=== PATIENT | female | born 1995 ===

== ENCOUNTER 2022-08-09 07:15 | Inpatient (IN) ==
--- NOTE | 2022-07-29 09:27 | Anesthesiology Consultation ---
Date of Service July 29, 2022 Assessment & Plan (1) Encounter for pre-operative examination: Chart Review Chart Review: medical charge entry specialist initiated -COVID screening: Per PAT nursing assessment on 07/29/22. No known COVID-19 positive contacts or current COVID-19 related symptoms. Travel screen negative. Patient is NOT vaccinated for Covid. At surgeon discretion if preop Covid testing being done. History Surgery Operation Date: 08/09/22 08:50 Proposed Procedures p Repeat Section - Bernardo Costello MD s with Bilateral Tubal Ligation - Bernardo Costello MD Height/Weight Height: 5 ft 9 in Weight: 120.202 kg Allergies Allergy/AdvReac Type Severity Reaction Status Date / Time No Known Allergies Allergy Verified 07/29/22 07:57 Medications Home Medications Medication Instructions Recorded Confirmed Last Taken ascorbic acid (vitamin C) 250 mg 250 mg PO QAM 07/29/22 07/29/22 Unknown tablet (Vitamin C) cyanocobalamin (vitamin B-12) 1,000 mcg PO QAM 07/29/22 07/29/22 Unknown 1,000 mcg tablet ferrous sulfate 140 mg (45 mg 45 mg PO QAM 07/29/22 07/29/22 Unknown iron) tablet,extended release (Slow Release Iron) sertraline 50 mg tablet 50 mg PO QAM 07/29/22 07/29/22 Unknown Past Medical History Medical History (Updated 07/29/22 @ 09:26 by Lucy Green PA-C) Anxiety and depression GERD (gastroesophageal reflux disease) only during Hypothyroidism pcp monitors labs Iron deficiency anemia during Prediabetes "supposed to take metformin but does not" Hgb A1C 5.3 in 05/2022 per records PTSD (post-traumatic stress disorder) Past Surgical History Surgical History Family history of reaction to anesthesia son>confused and combative with tonsillectomy History of section x 1 History of surgery on arm Right [place] teeth removed Social History Smoking Status: Former smoker tobacco type: cigarettes Do You Dip or Chew Tobacco: No Smoking End Date: 2021 Hx Alcohol Use: No substance use type: does not use Testing Laboratory Results 07/15/22= WBC: 8.43 H/H: 11.0/34.2 PLATELETS: 208 CREATININE: 0.7 TSH: 1.65
[2022-08-09] MEDS ORDERED: LACTATED RINGER'S 1,000 ML IV SCH (07:45)
[2022-08-09] MEDS ORDERED: CITRIC ACID/SODIUM CITRATE 15 ML UDC PO SCH (07:45)
[2022-08-09 08:22] LABS: Basophils # (auto) 0.04 K/uL (0-0.2); Basophils % (auto) 0.5 %; Eosinophils # (auto) 0.05 K/uL (0-0.50); Eosinophils % (auto) 0.7 %; Hematocrit (blood only) 34.6 % (37.0-47.0); Hemoglobin 11.4 g/dl (12.0-16.0); Immature Granulocytes # (auto) 0.14 K/uL (0.01-0.20); Immature Granulocytes % (auto) 1.8 %; Lymphocytes % (auto) 24.8 %; Mean Corpuscular Hemoglobin 29.5 pg (25.0-34.0); Mean Corpuscular Hgb Conc 32.9 g/dL (32.0-36.0); Mean Corpuscular Volume 89.6 fL (80.0-100.0); Mean Platelet Volume 8.9 fL (9.4-12.4); Monocytes # (auto) 0.55 K/uL (0.11-0.59); Monocytes % (auto) 7.2 %; Neutrophils # (auto) 4.99 K/uL (1.40-6.50); Platelet Count 193 K/uL (130-400); RDW Coefficient of Variation 14.3 % (11.5-14.5); RDW Standard Deviation 47.2 fL (36.4-46.3); Red Blood Count 3.86 M/uL (4.20-5.40); White Blood Count 7.67 K/ul (4.8-10.8)
[2022-08-09] MEDS ORDERED: SODIUM CHLORIDE 0.9% 250 ML IV PRN (08:34)
[2022-08-09] MEDS ORDERED: MoRPHine SULFATE PF 1 MG/ML 10 ML AMP/VIAL ONE (09:16)
[2022-08-09] MEDS ORDERED: ONDANSETRON INJ 2 MG/ML 2 ML VIAL IV PRN (10:23)
[2022-08-09] MEDS ORDERED: diphenhydrAMINE 50 MG/ML VIAL IV PRN (10:23)
[2022-08-09] MEDS ORDERED: PROMETHAZINE HCL 12.5 MG in SODIUM CHLORIDE 0.9% 50 ML IV PRN (10:23)
[2022-08-09] MEDS ORDERED: ePHEDrine sulfate 50 MG/ML AMP IV PRN (10:23)
[2022-08-09] MEDS ORDERED: MoRPHine SULFATE 2 MG/ML CARP IV PRN (10:23)
[2022-08-09] MEDS ORDERED: NALOXONE HCL 1 MG in SODIUM CHLORIDE 0.9% 1000ML 1,000 ML IV PRN (10:23)
[2022-08-09] MEDS ORDERED: MoRPHine SULFATE PF 1 MG/ML 10 ML AMP/VIAL INT SPINAL ONE (10:23)
[2022-08-09] MEDS ORDERED: NALBUPHINE HCL INJ 10 MG/ML AMP IV PRN (10:23)
[2022-08-09] MEDS ORDERED: LACTATED RINGER'S 500 ML IV PRN (10:23)
[2022-08-09] MEDS ORDERED: NALOXONE HCL 0.08 MG in SYRINGE 1.8 ML IV PRN (10:23)
[2022-08-09] MEDS ORDERED: NALOXONE HCL 0.4 MG/1 ML VIAL/CARP IV PRN (10:23)
[2022-08-09] MEDS ORDERED: DC INTRASPINAL MORPHINE SCH (10:30)
[2022-08-09] MEDS ORDERED: SODIUM CHLORIDE 0.9% 1000ML 1,000 ML IV SCH (10:30)
[2022-08-09] MEDS ORDERED: NO NARCOTICS OR SEDATIVES SCH (10:30)
[2022-08-09] MEDS ORDERED: METOCLOPRAMIDE HCL INJ 5 MG/ML 2 ML VIAL ONE (10:40)
[2022-08-09] MEDS ORDERED: PHENYLEPHRINE 100MCG/ML 5ML SYR ONE (10:40)
[2022-08-09] MEDS ORDERED: ONDANSETRON INJ 2 MG/ML 2 ML VIAL ONE (10:40)
[2022-08-09] MEDS ORDERED: ePHEDrine sulfate 50 MG/ML SYR ONE (10:40)
[2022-08-09] MEDS ORDERED: OXYTOCIN 10 UNITS/ML VIAL ONE (10:40)
[2022-08-09] MEDS ORDERED: METHYLERGONOVINE MALEATE 0.2 MG/ML AMP ONE (11:29)
[2022-08-09] MEDS ORDERED: OXYTOCIN 10 UNITS/ML 10ML VIAL IM ONE (11:39)
[2022-08-09 11:43] LABS: Base Excess Cord Venous Blood -2.6 mEq/L (-7.7-1.9); Cord Venous Blood HCO3 22 mmol/L (18.4-26.8); Cord Venous Blood PCO2 36 mmHg (30.4-57.2); Cord Venous Blood PO2 34 mmHg (14.1-43.3); Cord Venous Blood pH 7.39 (7.20-7.44); O2 Saturation Cord Venous Bld 70.3 % (<68)
[2022-08-09] MEDS ORDERED: BENZOCAINE 20% AER SPR 82.5 GM CAN EXT PRN (12:30)
[2022-08-09] MEDS ORDERED: HYDROCORTISONE ACETATE 25 MG SUPP PR PRN (12:30)
[2022-08-09] MEDS ORDERED: DIPHTHERIA/TETANUS/PERTUSSIS Vaccine (Tdap, Age 7+yrs) 0.5mL SYR/VL IM ONE (12:30)
[2022-08-09] MEDS ORDERED: MAGNESIUM HYDROXIDE SUSP 30 ML UDC PO PRN (12:30)
[2022-08-09] MEDS ORDERED: SENNA 8.6 MG TAB PO PRN (12:30)
[2022-08-09] MEDS: SIMETHICONE 80 MG CHEW PO SCH ×3 (13:42→21:53)
[2022-08-09] MEDS: KETOROLAC 30 MG/ML VIAL IV PRN ×2 (13:47→23:27)
[2022-08-09] MEDS: OXYTOCIN 20 UNITS in LACTATED RINGER'S 1,000 ML IV SCH ×2 (13:59→22:10)
--- NOTE | 2022-08-09 15:34 | Anesthesiology Progress Note ---
Date of Service August 09, 2022 Anesthesia Post Procedure Vital Signs Vital Signs: Temp Pulse Resp BP Pulse Ox 08/09/22 15:13 18 08/09/22 14:10 71 18 100 08/09/22 13:40 36.5 C 20 08/09/22 13:10 18 08/09/22 13:10 18 08/09/22 12:50 18 08/09/22 12:40 20 08/09/22 12:06 36.5 C 18 08/09/22 12:30 18 08/09/22 12:20 18 08/09/22 07:39 36.7 C 20 08/09/22 15:01 68 115/59 L 08/09/22 14:58 75 89 L 08/09/22 14:56 96 H 115/62 08/09/22 14:53 72 100 08/09/22 14:48 100 08/09/22 14:48 71 08/09/22 14:48 68 91 08/09/22 14:46 72 123/67 08/09/22 14:42 72 98 08/09/22 14:40 80 92 08/09/22 14:37 83 100 08/09/22 14:36 72 121/60 08/09/22 14:32 147 H 88 L 08/09/22 14:27 82 83 L 08/09/22 14:26 88 118/64 08/09/22 14:22 92 08/09/22 14:22 71 08/09/22 14:22 78 92 08/09/22 14:17 80 100 08/09/22 14:16 92 08/09/22 14:16 78 08/09/22 14:16 92 H 126/63 08/09/22 14:12 77 100 08/09/22 14:07 78 100 08/09/22 14:06 88 L 08/09/22 14:06 69 08/09/22 14:06 66 116/55 L 08/09/22 14:02 66 99 08/09/22 13:57 70 97 08/09/22 13:56 67 115/63 08/09/22 13:52 68 98 08/09/22 13:53 73 94 08/09/22 13:47 77 100 08/09/22 13:48 69 91 08/09/22 13:46 73 123/67 08/09/22 13:42 131 H 97 08/09/22 13:36 93 08/09/22 13:36 75 08/09/22 13:35 67 100 08/09/22 13:36 64 121/63 08/09/22 13:31 68 92 08/09/22 13:30 72 100 08/09/22 13:26 90 08/09/22 13:26 71 08/09/22 13:25 69 100 08/09/22 13:26 69 121/63 08/09/22 13:20 71 100 08/09/22 13:21 75 123/61 08/09/22 13:15 66 100 08/09/22 13:13 76 90 08/09/22 13:10 66 100 08/09/22 13:05 67 100 08/09/22 13:00 73 100 08/09/22 12:55 70 100 08/09/22 12:56 74 112/62 08/09/22 12:50 72 100 08/09/22 12:45 66 100 08/09/22 12:46 68 110/58 L 08/09/22 12:40 67 100 08/09/22 12:35 74 100 08/09/22 12:36 76 110/57 L 08/09/22 12:30 80 100 08/09/22 12:25 69 100 08/09/22 12:26 65 107/58 L 08/09/22 12:20 71 100 08/09/22 12:15 72 100 08/09/22 12:16 75 111/55 L 08/09/22 12:10 70 100 08/09/22 12:05 77 99 08/09/22 12:06 73 118/55 L 08/09/22 07:29 81 133/72 Pain Intensity Lower Abdomen: Pain Intensity: 2 Transfer of Care Handoff Completed per policy Notes Mental Status: alert / awake / arousable Patient Amnestic to Procedure: Yes Nausea / Vomiting: adequately controlled Pain: adequately controlled Airway Patency, RR, SpO2: stable & adequate BP & HR: stable & adequate Hydration State: stable & adequate Neuraxial Anesthesia: was administered and sensory block is resolving Anesthetic Complications: no major complications apparent
--- NOTE | 2022-08-09 16:20 | Operative Report (OR) ---
DATE OF SURGERY: 08/09/2022. INDICATION FOR SURGERY: This is a 27-year-old G3, P2, at term, prior section, wis hes to have repeat and permanent sterilization. PREOPERATIVE DIAGNOSES: 1. at term. 2. Previous section. 3. Wishes to have permanent sterilization. POSTOPERATIVE DIAGNOSES: 1. at term. 2. Previous section. 3. Wishes to have permanent sterilization. SURGEON: Dameon Morocho MD. ROBOTIC WELD TECHNICIAN: Nilsa Mitchell. ATTESTATION FOR ROBOTIC WELD TECHNICIAN: Public Interviewer was necessary to help with retraction and manipulation of instr uments in order to provide for a safe surgery. ANESTHESIA: General. PROCEDURE: Repeat section with bilateral fallopian tube removal. ESTIMATED BLOOD LOSS: 300 mL URINE OUTPUT: 350 mL clear urine at the end of procedure. INTRAVENOUS FLUIDS: 2900 mL SPECIMENS: Live infant. Weight and Apgars in the pediatric record. Cord gas, cord blood and placen ta. Left and right fallopian tubes. INTRAOPERATIVE COMPLICATIONS: None. PATIENT CONDITION: Stable. DISPOSITION: Postanesthesia care unit. ATTESTATION: I performed the entire procedure. FINDINGS: Abdomen had several adhesions from prior surgery. The omentum was attached to the anterio r abdominal wall. Both fallopian tubes were identified and followed to the fimbriated end, both ovar ies appeared grossly normal. Uterus otherwise appeared normal. DESCRIPTION OF PROCEDURE: The patient was taken to the operating room where she was prepped and drap ed in normal sterile fashion in dorsal lithotomy position. A transverse incision was made above the old scar because the old scar appeared inflamed and erythematous. It was in the crease of the pannus . Incision was carried down through the fascia. Fascia was incised in the midline and extended late rally on both sides. The rectus abdominis was dissected off the fascia. There was an adhesion of om entum attached to the rectus abdominis. Careful dissection was performed to prevent any hole in the fascia. Same procedure was performed on the lower part of the incision. Once the rectus abdominis w as sharply dissected off, it was incised in the midline. Peritoneum was identified and the abdomen e ntered. Once inside the abdomen, the findings as dictated above. The omentum was carefully dissecte d out of points of insertion on the abdominal wall. Uterus was identified, vesicouterine peritoneum was identified. The vesicouterine peritoneum was carefully dissected off the lower segment of the ut erus. A low transverse incision was made on the uterus and extended on both sides using bandage scis sors. Amniotomy was performed. Infant was delivered. There was a body cord around the right leg. This was easily reduced. Cord was clamped and cut and handed over to the waiting pediatric team. In josef's weight and information is in the pediatric record. Cord blood, cord gases were obtained. Toya centa was manually removed. Uterus was exteriorized and cleared of all clots and debris. Uterus was closed in 2 layers using Vicryl stitch. Good hemostasis was obtained. Attention was paid to the tubal ligation part of the procedure where both tubes were identified and f ollowed to the fimbriated end. Both fallopian tubes were transected using electrocautery. There was good hemostasis at the end of transection. Both specimens were sent to pathology for pathological a nalysis. Once good hemostasis was obtained, the uterus was returned to the abdominal cavity. Copiou s amount of irrigation used to irrigate the abdomen. The rectus abdominis muscle was loosely approxi mated using [id number] sutures. This was done to prevent future adhesions witnessed earlier in this patient. The fascia was examined and is in good condition. There were no openings in the fasci a, to prevent a hernia. The fascia was closed in running fashion using PDS suture. Copious amount o f irrigation was used to irrigate the abdomen. The subcutaneous space was reapproximated using plain suture. The skin was closed with phil. All instruments were removed from the abdomen and accounted for x2 including sponges, needles, and re tractors. The patient is sent to recovery in stable condition. Job ID: [id number]
[2022-08-09] MEDS: DOCUSATE SODIUM 100 MG CAP PO SCH (21:52)
[2022-08-10] MEDS ORDERED: diphenhydrAMINE Capsule 25 MG CAP PO PRN (04:54)
[2022-08-10] MEDS ORDERED: diphenhydrAMINE 50 MG/ML VIAL IV PRN (04:54)
[2022-08-10] MEDS ORDERED: ONDANSETRON INJ 2 MG/ML 2 ML VIAL IV PRN (04:54)
[2022-08-10] MEDS ORDERED: PROMETHAZINE HCL 25 MG in SODIUM CHLORIDE 0.9% 50 ML IV PRN (04:54)
[2022-08-10] MEDS: oxyCODONE/ACETAMINOPHEN 5mg/325mg TAB PO PRN ×4 (05:36→23:25)
[2022-08-10] MEDS: IBUPROFEN 600 MG TAB PO PRN ×4 (05:36→23:26)
[2022-08-10] MEDS: LACTATED RINGER'S 1,000 ML IV SCH (05:40)
[2022-08-10 06:45] LABS: Basophils # (auto) 0.02 K/uL (0-0.2); Basophils % (auto) 0.3 %; Eosinophils # (auto) 0.06 K/uL (0-0.50); Eosinophils % (auto) 0.8 %; Hematocrit (blood only) 30.7 % (37.0-47.0); Hemoglobin 10.2 g/dl (12.0-16.0); Immature Granulocytes # (auto) 0.07 K/uL (0.01-0.20); Immature Granulocytes % (auto) 0.9 %; Lymphocytes # (auto) 1.19 K/uL (1.2-3.4); Lymphocytes % (auto) 15.6 %; Mean Corpuscular Hemoglobin 29.7 pg (25.0-34.0); Mean Corpuscular Hgb Conc 33.2 g/dL (32.0-36.0); Mean Corpuscular Volume 89.2 fL (80.0-100.0); Mean Platelet Volume 9.1 fL (9.4-12.4); Monocytes # (auto) 0.71 K/uL (0.11-0.59); Monocytes % (auto) 9.3 %; Neutrophils # (auto) 5.58 K/uL (1.40-6.50); Neutrophils % (auto) 73.1 %; Platelet Count 155 K/uL (130-400); RDW Coefficient of Variation 14.3 % (11.5-14.5); RDW Standard Deviation 46.3 fL (36.4-46.3); Red Blood Count 3.44 M/uL (4.20-5.40); White Blood Count 7.63 K/ul (4.8-10.8)
[2022-08-10] MEDS: PRENATAL VITAMIN 1 TAB PO SCH (08:17)
[2022-08-10] MEDS: SIMETHICONE 80 MG CHEW PO SCH ×4 (08:17→20:27)
[2022-08-10] MEDS: DOCUSATE SODIUM 100 MG CAP PO SCH ×2 (08:17→20:28)
[2022-08-10] MEDS: FERROUS SULFATE 325 MG TAB PO SCH (08:17)
--- NOTE | 2022-08-10 10:48 | Obstetrical Progress Note ---
Date of Service August 10, 2022 Assessment & Plan (1) delivery delivered: POD #1 Pt doing well Continue day #1 care Results & Data Vital Signs (Past 12 Hours) Vital Signs Temp Pulse Resp BP Pulse Ox O2 Del Method 08/10/22 08:05 36.5 C 64 16 118/73 97 Room Air 08/10/22 04:00 18 92 08/10/22 03:10 18 97 08/10/22 03:10 36.8 C 72 18 112/68 97 Room Air 08/10/22 02:00 18 94 08/10/22 01:00 18 93 08/10/22 00:00 18 93 08/09/22 23:20 18 96 08/09/22 23:20 36.7 C 82 18 112/67 96 Room Air
[2022-08-10] MEDS ORDERED: bisacodyL 5 MG TABEC PO SCH (20:00)
[2022-08-11] MEDS: oxyCODONE/ACETAMINOPHEN 5mg/325mg TAB PO PRN ×4 (03:51→16:02)
[2022-08-11] MEDS: IBUPROFEN 600 MG TAB PO PRN ×4 (03:51→16:03)
[2022-08-11 06:23] LABS: Hematocrit (blood only) 29.7 % (37.0-47.0); Hemoglobin 9.7 g/dl (12.0-16.0)
[2022-08-11] MEDS: PRENATAL VITAMIN 1 TAB PO SCH (07:51)
[2022-08-11] MEDS: FERROUS SULFATE 325 MG TAB PO SCH (07:52)
[2022-08-11] MEDS: SIMETHICONE 80 MG CHEW PO SCH ×3 (07:52→16:02)
[2022-08-11] MEDS: DOCUSATE SODIUM 100 MG CAP PO SCH (07:52)
--- NOTE | 2022-08-11 11:04 | Obstetrical Progress Note ---
Date of Service August 11, 2022 Subjective Ambulation: ambulating normally Voiding: no voiding problems Passing Gas:: Yes Diet Tolerance:: regular diet Lochia:: Small Feeding Type:: breast feeding Current Pain Level(1-10): 0 doing well. wants to go home Physical Exam Constitutional WD/WN, vitals as above Gastrointestinal (Abdomen) Inspection/Auscultation: abdomen normal to inspection incision c/d/i Musculoskeletal Extremities: extremities normal to inspection Skin no rashes, warm and dry Neurologic patellar DTR's 2+ bilat, sensation intact Psychiatric A+Ox3, euthymic affect Results & Data Vital Signs (Past 12 Hours) Vital Signs Temp Pulse Resp BP Pulse Ox O2 Del Method 08/11/22 07:30 36.7 C 69 18 125/84 100 Room Air 08/10/22 23:09 36.8 C 63 16 123/77 97 Room Air Laboratory Results Laboratory Results - last 72 hr 08/09/22 08/09/22 08/09/22 07:26 07:26 07:28 WBC 7.67 RBC 3.86 L Hgb 11.4 L Hct 34.6 L MCV 89.6 MCH 29.5 MCHC 32.9 RDW Std Deviation 47.2 H RDW Coeff of Manju 14.3 Plt Count 193 MPV 8.9 L Immature Gran % (Auto) 1.8 Neut % (Auto) 65.0 Lymph % (Auto) 24.8 [place] % (Auto) 7.2 Eos % (Auto) 0.7 Baso % (Auto) 0.5 Neut # (Auto) 4.99 Lymph # (Auto) 1.90 [place] # (Auto) 0.55 Eos # (Auto) 0.05 Baso # (Auto) 0.04 Immature Gran # (Auto) 0.14 Cord ABG pH Cord ABG pCO2 Cord ABG pO2 Cord ABG HCO3 Cord ABG Base Excess Cord ABG O2 Sat Cord VBG pH Cord VBG pCO2 Cord VBG pO2 Cord VBG HCO3 Cord VBG Base Excess Cord VBG O2 Sat Barometric Pressure Blood Gas Comments SARS-CoV-2, RNA, NAAT NEGATIVE Blood Type O Positive Antibody Screen NEGATIVE Crossmatch See Detail 08/09/22 08/09/22 08/10/22 11:00 11:00 06:28 WBC 7.63 RBC 3.44 L Hgb 10.2 L Hct 30.7 L MCV 89.2 MCH 29.7 MCHC 33.2 RDW Std Deviation 46.3 RDW Coeff of Manju 14.3 Plt Count 155 MPV 9.1 L Immature Gran % (Auto) 0.9 Neut % (Auto) 73.1 Lymph % (Auto) 15.6 [place] % (Auto) 9.3 Eos % (Auto) 0.8 Baso % (Auto) 0.3 Neut # (Auto) 5.58 Lymph # (Auto) 1.19 L [place] # (Auto) 0.71 H Eos # (Auto) 0.06 Baso # (Auto) 0.02 Immature Gran # (Auto) 0.07 Cord ABG pH Cancelled Cord ABG pCO2 Cancelled Cord ABG pO2 Cancelled Cord ABG HCO3 Cancelled Cord ABG Base Excess Cancelled Cord ABG O2 Sat Cancelled Cord VBG pH 7.39 Cord VBG pCO2 36 Cord VBG pO2 34 Cord VBG HCO3 22 Cord VBG Base Excess -2.6 Cord VBG O2 Sat 70.3 H Barometric Pressure Cancelled Blood Gas Comments Cancelled LANE SARS-CoV-2, RNA, NAAT Blood Type Antibody Screen Crossmatch 08/11/22 05:55 WBC RBC Hgb 9.7 L Hct 29.7 L MCV MCH MCHC RDW Std Deviation RDW Coeff of Manju Plt Count MPV Immature Gran % (Auto) Neut % (Auto) Lymph % (Auto) [place] % (Auto) Eos % (Auto) Baso % (Auto) Neut # (Auto) Lymph # (Auto) [place] # (Auto) Eos # (Auto) Baso # (Auto) Immature Gran # (Auto) Cord ABG pH Cord ABG pCO2 Cord ABG pO2 Cord ABG HCO3 Cord ABG Base Excess Cord ABG O2 Sat Cord VBG pH Cord VBG pCO2 Cord VBG pO2 Cord VBG HCO3 Cord VBG Base Excess Cord VBG O2 Sat Barometric Pressure Blood Gas Comments SARS-CoV-2, RNA, NAAT Blood Type Antibody Screen Crossmatch
[2022-08-11] MEDS ORDERED: bisacodyL 10 MG SUPP PR PRN (12:30)
== END 2022-08-11 19:05 | disposition home or self-care (01) | DRG 785 ==
LOC: 4S1 07:15 → EDSTATUS 08:50 → 4E2 15:05
PROC: M.PPTLD (2022-08-09 09:10)